=== PATIENT | female | born 1995 | race African-American/Black ===

== ENCOUNTER 2023-04-28 07:16 | Inpatient (IN) | payer OTHER, SELFPAY ==
[2023-04-28 08:10] LABS: #Monocytes 0.1 thou/uL (0.11-0.59); #Neutrophils 12.7 thou/uL (1.40-6.50); %Basophils 0.3 % (0.0-1.0); %Lymphocytes 5.4 % (21.0-51.0); %Monocytes 0.9 % (0.0-10.0); %Neutrophils 93.2 % (42.0-75.0); Hematocrit 45.1 % (36.0-47.0); Hemoglobin 14.7 g/dL (12.0-16.0); Mean Corpuscular HGB CONC 32.6 g/dL (32.0-36.0); Mean Corpuscular Hemoglobin 26.6 pg (27.0-31.0); Mean Corpuscular Volume 81.7 fl (78.0-98.0); Mean Platelet Volume 13.5 fL (7.4-10.4); Platelet Count 218 10x3/uL (130-400); RBC Distribution Width 12.7 % (11.5-14.5); Red Blood Cell (RBC) Count 5.52 mill/uL (4.20-5.40); White Blood Cell (WBC) Count 13.6 10x3/uL (4.8-10.8)
[2023-04-28 08:35] LABS: Phosphorus 5.6 mg/dL (2.3-4.7)
[2023-04-28 08:37] LABS: ALT (SGPT) 17 U/L (8-55); AST (SGOT) 15 U/L (5-34); Albumin 4.5 g/dL (3.5-5.0); Alkaline Phosphatase 139 U/L (40-110); Anion Gap 20 mmol/L (10-20); BUN (Urea Nitrogen) 12 mg/dL (7.0-18.7); Bilirubin, Total 0.2 mg/dL (0.2-1.2); Calc. Creatinine Clearance 0 mL/min (70-130); Calcium 10.3 mg/dL (7.8-10.44); Carbon Dioxide 23 mmol/L (22-29); Chloride 100 mmol/L (98-107); Estimated GFR 82; Glucose 366 mg/dL (70-105); Potassium 4.6 mmol/L (3.5-5.1); Protein, Total 8.5 g/dL (6.0-8.3); Sodium 138 mmol/L (136-145)
[2023-04-28 08:41] LABS: Bacteria/HPF 3+ HPF (None Seen); Bilirubin Negative (Negative); Blood, Urine 2+ (Negative); CAUTI Indications for Culture Dysuria,urgency,freq; Clarity Turbid (Clear); Glucose, Urine (Dipstick) Greater than 1000 mg/dL (Negative); Ketone, Urine 100 mg/dL (Negative); Leukocyte Negative Leu/uL (Negative); Nitrite Negative (Negative); Protein, Urine (Dipstick) 200 mg/dL (Neg-Trace); Specific Gravity, Urine 1.024 (1.002-1.036); Urobilinogen Normal mg/dL (Less than 2)
[2023-04-28 08:42] LABS: Amphetamine Not Detected (NotDetected); Barbiturates Screen Not Detected (NotDetected); Benzodiazepine Screen Not Detected (NotDetected); Cocaine Metabolite Screen Not Detected (NotDetected); Methadone Not Detected (NotDetected); Methamphetamine Not Detected (NotDetected); Opiate Screen Not Detected (NotDetected); Oxycodone Screen Not Detected (NotDetected); Phencyclidine (PCP) Not Detected (NotDetected); THC/Cannabinoid Screen Not Detected (NotDetected); Tricyclic Screen Not Detected (NotDetected)
[2023-04-28 08:43] LABS: Urine Culture Reflex Yes Yes
[2023-04-28 08:52] LABS: Acetaminophen Less than 10 mcg/mL (10.0-30.0); Alcohol Less than 10.0 mg/dL (Less than 10); Salicylate Less than 8.0 mg/dL (15.0-30.0)
[2023-04-28 08:57] LABS: Troponin I Less than 0.010 ng/mL (< 0.028)
[2023-04-28 09:43] LABS: SARS-CoV-2 NAA Rapid Test Not Detected (NotDetected)
[2023-04-28] MEDS ORDERED: Insulin Regular 300 UNITS/3 ML VIAL ONE (10:26)
[2023-04-28 11:32] LABS: Base Excess -6.8 mEq/L (-2.0 to +3.0); Calcium, Ionized (venous) 1.06 mmol/L (1.16-1.32); Chloride (VBG) 105 mmol/L (98-106); Hematocrit-VBG 45 % (36.0-47.0); Hemoglobin (Hb) 15.3 g/dL (11.7-15.5); Potassium (VBG) 4.97 mmol/L (3.70-5.30); Sodium 142 mmol/L (133-146); pH (venous) 7.305 (7.32-7.43)
[2023-04-28] MEDS ORDERED: INSULIN REGULAR IN 0.9 % NACL 100 UNITS/100 ML BAG ONE (11:59)
[2023-04-28] MEDS ORDERED: NS 0.9% w/ 20 MEQ KCL 1,000 ML ONE (11:59)
[2023-04-28] MEDS ORDERED: Ondansetron PF 4 MG/2 ML Vial ONE (12:09)
[2023-04-28] MEDS ORDERED: Acetaminophen 500 MG TAB ONE (12:09)
[2023-04-28] MEDS ORDERED: Sodium Chloride 0.9% 1,000 ML IV PRN (12:37)
[2023-04-28] MEDS ORDERED: NS 0.9% w/ 20 MEQ KCL 1,000 ML IV PRN ×2 (12:37)
[2023-04-28] MEDS ORDERED: Electrolyte Replacement Protocol 1 EACH IVPB SCH (12:37)
[2023-04-28] MEDS ORDERED: Dextrose 50% Abboject 50 ML SYRINGE SLOW IVP PRN ×2 (12:37→22:52)
[2023-04-28] MEDS ORDERED: Dextrose 5 %-0.45 % NaCl 1,000 ML IV PRN (12:37)
[2023-04-28] MEDS ORDERED: HUMULIN R 100 UNITS in Sodium Chloride 0.9% 100 ML IVPB SCH (12:45)
[2023-04-28 13:29] LABS: BHCG - Serum Negative (NEGATIVE); Pregs Control Background? CLEAR/WHITE (CLR/WHITE); Pregs Control Bar Appear? YES (CONTROL BAR)
[2023-04-28 14:19] LABS: Anion Gap 22 mmol/L (10-20); BUN (Urea Nitrogen) 10 mg/dL (7.0-18.7); Calc. Creatinine Clearance 0 mL/min (70-130); Calcium 9.1 mg/dL (7.8-10.44); Carbon Dioxide 15 mmol/L (22-29); Chloride 111 mmol/L (98-107); Estimated GFR 102; Glucose 285 mg/dL (70-105); Potassium 4.8 mmol/L (3.5-5.1); Sodium 143 mmol/L (136-145)
[2023-04-28] MEDS: D5 1/2 NS w/20 mEq KCL 1,000 ML IV PRN ×2 (16:44→20:45)
[2023-04-28] MEDS ORDERED: FLU VACC QS2023-24(6MOS UP)/PF 60 MCG/0.5 ML SYRINGE IM ONE (16:45)
[2023-04-28 18:15] LABS: Anion Gap 18 mmol/L (10-20); BUN (Urea Nitrogen) 10 mg/dL (7.0-18.7); Calc. Creatinine Clearance 0 mL/min (70-130); Calcium 9.4 mg/dL (7.8-10.44); Carbon Dioxide 19 mmol/L (22-29); Chloride 111 mmol/L (98-107); Estimated GFR 93; Glucose 214 mg/dL (70-105); Potassium 4.5 mmol/L (3.5-5.1); Sodium 143 mmol/L (136-145)
[2023-04-28 18:42] VITALS: BMI 31.6
[2023-04-28] MEDS ORDERED: Insulin Glargine 30 UNITS/0.3 ML VIAL SC SCH ×2 (21:00→23:00)
[2023-04-28] MEDS ORDERED: cefTRIAXone\\ROCEPHIN 1 GM in Sodium Chloride 0.9% 100 ML IVPB SCH (21:00)
[2023-04-28] MEDS: Acetaminophen 325 MG TAB PO PRN (21:31)
[2023-04-28 22:33] LABS: Anion Gap 14 mmol/L (10-20); BUN (Urea Nitrogen) 8 mg/dL (7.0-18.7); Calc. Creatinine Clearance 148 mL/min (70-130); Calcium 8.7 mg/dL (7.8-10.44); Carbon Dioxide 18 mmol/L (22-29); Chloride 112 mmol/L (98-107); Estimated GFR 105; Glucose 227 mg/dL (70-105); Potassium 4.1 mmol/L (3.5-5.1); Sodium 140 mmol/L (136-145)
[2023-04-28] MEDS ORDERED: Dextrose 5% in Water 1,000 ML IV PRN (22:52)
[2023-04-28] MEDS ORDERED: Glucagon 1 MG/ML KIT IM PRN (22:52)
[2023-04-29] MEDS: Lactated Ringer's 1,000 ML IV SCH ×2 (00:06→13:01)
[2023-04-29] MEDS: HumaLOG 300 UNITS/3 ML VIAL SC PRN ×2 (04:14→13:01)
[2023-04-29 06:49] LABS: #Basophils 0.1 thou/uL (0.0-0.2); #Monocytes 0.8 thou/uL (0.11-0.59); %Basophils 0.4 % (0.0-1.0); %Eosinophils 0.1 % (0.0-10.0); %Lymphocytes 22.4 % (21.0-51.0); %Monocytes 6.7 % (0.0-10.0); %Neutrophils 70.1 % (42.0-75.0); Hematocrit 37.5 % (36.0-47.0); Hemoglobin 12.3 g/dL (12.0-16.0); Mean Corpuscular HGB CONC 32.8 g/dL (32.0-36.0); Mean Corpuscular Hemoglobin 26.6 pg (27.0-31.0); Mean Corpuscular Volume 81.2 fl (78.0-98.0); Mean Platelet Volume 13.5 fL (7.4-10.4); Platelet Count 169 10x3/uL (130-400); RBC Distribution Width 13.3 % (11.5-14.5); Red Blood Cell (RBC) Count 4.62 mill/uL (4.20-5.40); White Blood Cell (WBC) Count 11.4 10x3/uL (4.8-10.8)
[2023-04-29 06:56] LABS: Hemoglobin A1c 10.4 % (4.0-6.0)
[2023-04-29 07:11] LABS: Anion Gap 10 mmol/L (10-20); BUN (Urea Nitrogen) 7 mg/dL (7.0-18.7); Calc. Creatinine Clearance 0 mL/min (70-130); Calcium 8.6 mg/dL (7.8-10.44); Carbon Dioxide 22 mmol/L (22-29); Chloride 110 mmol/L (98-107); Estimated GFR 117; Glucose 230 mg/dL (70-105); Potassium 3.7 mmol/L (3.5-5.1); Sodium 138 mmol/L (136-145)
[2023-04-29] MEDS ORDERED: Famotidine/PF 20 mg/2ml Vial SLOW IVP SCH (09:00)
[2023-04-29] MEDS ORDERED: Insulin Glargine 30 UNITS/0.3 ML VIAL SC SCH (09:15)
[2023-04-29 11:23] VITALS: TEMP 98.8
[2023-04-29] MEDS: Acetaminophen 325 MG TAB PO PRN (18:42)
== END 2023-04-29 19:30 | disposition home or self-care (01) | DRG 871 ==
LOC: ERS 07:16 → IMCU/EMU 12:39
PROVIDERS: ADMIT Hospitalist; ATTEND Hospitalist
DX: A41.9 Sepsis, unspecified organism (principal); E10.10 Type 1 diabetes mellitus with ketoacidosis without coma; N39.0 Urinary tract infection, site not specified; I10 Essential (primary) hypertension; G43.909 Migraine, unspecified, not intractable, without status migrainosus; F17.210 Nicotine dependence, cigarettes, uncomplicated; Z20.822 Contact with and (suspected) exposure to COVID-19; Z79.4 Long term (current) use of insulin
CPT/HCPCS: 36415; 36416; 80048; 80053; 80306; 80307; 81001; 82010; 82805; 83036; 83605; 83735; 84100; 84484; 84703; 85025; 87040; 87077; 87086; 87186; 93005; 96361; 96365; 96366; 96375; J0696; J1815; J2405; J3480; J3490; J7120; S0028

== ENCOUNTER 2023-06-09 05:18 | Emergency (ER) | payer SELFPAY ==
[2023-06-09] MEDS ORDERED: Metoclopramide HCl 10 MG/2 ML VIAL ONE (05:41)
[2023-06-09] MEDS ORDERED: diphenhydrAMINE 50 MG/ML VIAL ONE (05:41)
[2023-06-09] MEDS ORDERED: Magnesium 2 GM/50 ML BAG (IN WATER) ONE (05:41)
[2023-06-09] MEDS ORDERED: Ketorolac Tromethamine 30 MG/ML VIAL ONE (05:41)
[2023-06-09 06:01] LABS: #Monocytes 0.6 thou/uL (0.11-0.59); #Neutrophils 5.6 thou/uL (1.40-6.50); %Basophils 0.5 % (0.0-1.0); %Eosinophils 0.5 % (0.0-10.0); %Lymphocytes 25.2 % (21.0-51.0); %Monocytes 6.7 % (0.0-10.0); %Neutrophils 66.7 % (42.0-75.0); Hematocrit 43.8 % (36.0-47.0); Hemoglobin 14.6 g/dL (12.0-16.0); Mean Corpuscular HGB CONC 33.3 g/dL (32.0-36.0); Mean Corpuscular Hemoglobin 27.2 pg (27.0-31.0); Mean Corpuscular Volume 81.7 fl (78.0-98.0); Mean Platelet Volume 12.9 fL (7.4-10.4); Platelet Count 237 10x3/uL (130-400); RBC Distribution Width 13.1 % (11.5-14.5); Red Blood Cell (RBC) Count 5.36 mill/uL (4.20-5.40); White Blood Cell (WBC) Count 8.4 10x3/uL (4.8-10.8)
[2023-06-09 06:15] LABS: BHCG - Serum Negative (NEGATIVE); Pregs Control Background? CLEAR/WHITE (CLR/WHITE); Pregs Control Bar Appear? YES (CONTROL BAR)
[2023-06-09 06:37] LABS: ALT (SGPT) 18 U/L (8-55); AST (SGOT) 25 U/L (5-34); Albumin 3.9 g/dL (3.5-5.0); Alkaline Phosphatase 129 U/L (40-110); Anion Gap 14 mmol/L (10-20); BUN (Urea Nitrogen) 14 mg/dL (7.0-18.7); Bilirubin, Total 0.2 mg/dL (0.2-1.2); Calc. Creatinine Clearance 0 mL/min (70-130); Calcium 9.5 mg/dL (7.8-10.44); Carbon Dioxide 26 mmol/L (22-29); Chloride 104 mmol/L (98-107); Estimated GFR 112; Globulin 4.1 g/dL (2.4-3.5); Glucose 112 mg/dL (70-105); Potassium 3.4 mmol/L (3.5-5.1); Sodium 141 mmol/L (136-145)
[2023-06-09 06:43] LABS: Magnesium 1.8 mg/dL (1.6-2.6)
== END 2023-06-09 09:19 | disposition home or self-care (01) ==
LOC: ERS 05:18
DX: R51.9 Headache, unspecified (principal); I10 Essential (primary) hypertension; E11.9 Type 2 diabetes mellitus without complications; F17.290 Nicotine dependence, other tobacco product, uncomplicated; Z79.4 Long term (current) use of insulin
CPT/HCPCS: 80053; 83735; 84703; 85025; 96365; 96368; 96375; J1200; J1885; J2765; J3475

== ENCOUNTER 2023-06-14 04:00 | Inpatient (IN) | payer SELFPAY ==
[2023-06-14] MEDS ORDERED: diphenhydrAMINE 50 MG/ML VIAL ONE (04:35)
[2023-06-14] MEDS ORDERED: Prochlorperazine 10 MG/2 ML VIAL ONE (04:35)
[2023-06-14] MEDS ORDERED: Acetaminophen 500 MG TAB ONE (04:35)
[2023-06-14] MEDS ORDERED: Metoclopramide HCl 10 MG/2 ML VIAL ONE (05:11)
[2023-06-14 07:45] LABS: Analyzer IN Cardio ER; Base Excess -22.6 mEq/L (-2.0 to +3.0); Calcium, Ionized (venous) 1.27 mmol/L (1.16-1.32); Chloride (VBG) 98 mmol/L (98-106); Hematocrit-VBG 45 % (36.0-47.0); Hemoglobin (Hb) 15.3 g/dL (11.7-15.5); Sodium 136 mmol/L (133-146)
[2023-06-14 07:53] LABS: #Basophils 0.1 thou/uL (0.0-0.2); #Monocytes 0.9 thou/uL (0.11-0.59); #Neutrophils 7.6 thou/uL (1.40-6.50); %Basophils 0.5 % (0.0-1.0); %Lymphocytes 14.4 % (21.0-51.0); %Monocytes 9.3 % (0.0-10.0); %Neutrophils 75.5 % (42.0-75.0); Hematocrit 45.9 % (36.0-47.0); Hemoglobin 14.8 g/dL (12.0-16.0); Mean Corpuscular HGB CONC 32.2 g/dL (32.0-36.0); Mean Corpuscular Hemoglobin 27.1 pg (27.0-31.0); Mean Corpuscular Volume 84.1 fl (78.0-98.0); Mean Platelet Volume 13.8 fL (7.4-10.4); Platelet Count 202 10x3/uL (130-400); RBC Distribution Width 13.3 % (11.5-14.5); Red Blood Cell (RBC) Count 5.46 mill/uL (4.20-5.40); White Blood Cell (WBC) Count 10.1 10x3/uL (4.8-10.8)
[2023-06-14 08:02] LABS: pH (venous) 7.057 (7.32-7.43)
[2023-06-14 08:03] LABS: Actual Bicarbonate (HCO3v) 6.2 mEq/L (22-28); Potassium (VBG) 6.35 mmol/L (3.70-5.30)
[2023-06-14 08:20] LABS: BHCG - Serum Negative (NEGATIVE); Pregs Control Background? CLEAR/WHITE (CLR/WHITE); Pregs Control Bar Appear? YES (CONTROL BAR)
[2023-06-14] MEDS ORDERED: INSULIN REGULAR IN 0.9 % NACL 100 UNITS/100 ML BAG ONE (08:38)
[2023-06-14 09:01] LABS: Lipase 6 U/L (8-78); Phosphorus 6.1 mg/dL (2.3-4.7)
[2023-06-14 09:05] LABS: ALT (SGPT) 13 U/L (8-55); AST (SGOT) 13 U/L (5-34); Alkaline Phosphatase 111 U/L (40-110); BUN (Urea Nitrogen) 34 mg/dL (7.0-18.7); Bilirubin, Total 0.2 mg/dL (0.2-1.2); Calc. Creatinine Clearance 0 mL/min (70-130); Calcium 7.8 mg/dL (7.8-10.44); Chloride 107 mmol/L (98-107); Estimated GFR 42; Globulin 3.3 g/dL (2.4-3.5); Magnesium 2.2 mg/dL (1.6-2.6); Potassium 5.2 mmol/L (3.5-5.1); Protein, Total 6.3 g/dL (6.0-8.3); Sodium 137 mmol/L (136-145)
[2023-06-14 09:09] LABS: Bacteria/HPF None Seen HPF (None Seen); Bilirubin Negative (Negative); Blood, Urine Trace (Negative); CAUTI Indications for Culture Alt mental st,lethar; Clarity Turbid (Clear); Glucose, Urine (Dipstick) Greater than 1000 mg/dL (Negative); Ketone, Urine 100 mg/dL (Negative); Leukocyte Negative Leu/uL (Negative); Nitrite Negative (Negative); Protein, Urine (Dipstick) 50 mg/dL (Neg-Trace); Specific Gravity, Urine 1.013 (1.002-1.036); Squamous Epithelial None Seen HPF (0-3); Urobilinogen Normal mg/dL (Less than 2)
[2023-06-14 09:10] LABS: Urine Culture Reflex No No
[2023-06-14 09:27] LABS: Troponin I Less than 0.010 ng/mL (< 0.028)
[2023-06-14 09:31] LABS: Carbon Dioxide Less than 8 mmol/L (22-29); Glucose 662 mg/dL (70-105)
[2023-06-14] MEDS ORDERED: Ondansetron PF 4 MG/2 ML Vial ONE (09:53)
[2023-06-14 09:54] LABS: Acetaminophen Less than 10 mcg/mL (10.0-30.0); Alcohol Less than 10.0 mg/dL (Less than 10); Salicylate Less than 8.0 mg/dL (15.0-30.0)
[2023-06-14 09:58] LABS: Amphetamine Not Detected (NotDetected); Barbiturates Screen Not Detected (NotDetected); Benzodiazepine Screen Not Detected (NotDetected); Cocaine Metabolite Screen Not Detected (NotDetected); Methadone Not Detected (NotDetected); Methamphetamine Not Detected (NotDetected); Opiate Screen Not Detected (NotDetected); Oxycodone Screen Not Detected (NotDetected); Phencyclidine (PCP) Not Detected (NotDetected); THC/Cannabinoid Screen Not Detected (NotDetected); Tricyclic Screen Not Detected (NotDetected)
[2023-06-14] MEDS ORDERED: Acetaminophen 650 MG Suppository PR PRN (10:06)
[2023-06-14] MEDS ORDERED: NS 0.9% w/ 20 MEQ KCL 1,000 ML IV PRN ×2 (10:06)
[2023-06-14] MEDS ORDERED: Calcium Carbonate 500 MG ChewTAB PO PRN (10:06)
[2023-06-14] MEDS ORDERED: Electrolyte Replacement Protocol 1 EACH IVPB ONE (10:06)
[2023-06-14] MEDS ORDERED: Sodium Chloride 0.9% 1,000 ML IV PRN ×4 (10:06)
[2023-06-14] MEDS ORDERED: Dextrose 50% Abboject 50 ML SYRINGE SLOW IVP PRN (10:06)
[2023-06-14] MEDS ORDERED: Dextrose 5 %-0.45 % NaCl 1,000 ML IV PRN (10:06)
[2023-06-14] MEDS ORDERED: Senokot S 8.6-50 MG TAB PO PRN (10:06)
[2023-06-14] MEDS ORDERED: Ondansetron PF 4 MG/2 ML Vial IVP PRN (10:06)
[2023-06-14] MEDS ORDERED: Sodium Chloride 0.9% 1,000 ML IV SCH (10:15)
[2023-06-14] MEDS ORDERED: HUMULIN R 100 UNITS in Sodium Chloride 0.9% 100 ML IVPB SCH (10:15)
[2023-06-14] MEDS ORDERED: Electrolyte Replacement Protocol FS PRN (10:30)
[2023-06-14 11:12] LABS: BUN (Urea Nitrogen) 36 mg/dL (7.0-18.7); Calc. Creatinine Clearance 0 mL/min (70-130); Calcium 7.9 mg/dL (7.8-10.44); Chloride 114 mmol/L (98-107); Estimated GFR 40; Sodium 140 mmol/L (136-145)
[2023-06-14 11:20] LABS: Carbon Dioxide Less than 8 mmol/L (22-29); Glucose 465 mg/dL (70-105); Troponin I Less than 0.010 ng/mL (< 0.028)
[2023-06-14 11:42] LABS: Calcium, Ionized (arterial) 1.23 mmol/L (1.12-1.30); Carboxyhemoglobin (COHb) 0.4 gm% (0.0-3.0); Hematocrit-ABG 40 % (36.0-47.0); Hemoglobin (Hb) 13.7 g/dL (12.0-16.0); O2 Tension (PaO2), arterial 113.3 mmHg (80.0-100.0); Potassium - ABG Lab 5.19 mmol/L (3.70-5.30)
[2023-06-14] MEDS ORDERED: Sodium Bicarb 50 MEQ/50 ML VIAL IVP SCH ×2 (11:45→11:47)
[2023-06-14 11:49] LABS: Actual Bicarbonate (HCO3a) 5.6 mEq/L (22-28); CO2 Tension 19.9 mmHg (35.0-45.0); Puncture Site RRA; pH, Arterial 7.064 (7.35-7.45)
[2023-06-14] MEDS ORDERED: Piperacillin/Tazobactam 3.375 GM in Sodium Chloride 0.9% 100 ML IVPB SCH (13:15)
[2023-06-14] MEDS ORDERED: FLU VACC QS2023-24(6MOS UP)/PF 60 MCG/0.5 ML SYRINGE IM ONE (14:30)
[2023-06-14 15:18] LABS: Base Excess (BEa) -14.3 mEq/L (-2.0 to +3.0); Calcium, Ionized (arterial) 1.19 mmol/L (1.12-1.30); Carboxyhemoglobin (COHb) 0.2 gm% (0.0-3.0); Hematocrit-ABG 40 % (36.0-47.0); Hemoglobin (Hb) 13.5 g/dL (12.0-16.0); O2 Tension (PaO2), arterial 99.3 mmHg (80.0-100.0); Potassium - ABG Lab 4.84 mmol/L (3.70-5.30); pH, Arterial 7.236 (7.35-7.45)
[2023-06-14 15:21] LABS: Actual Bicarbonate (HCO3a) 11.6 mEq/L (22-28); Puncture Site LBA
[2023-06-14 16:39] LABS: Anion Gap 22 mmol/L (10-20); BUN (Urea Nitrogen) 26 mg/dL (7.0-18.7); Calc. Creatinine Clearance 73 mL/min (70-130); Calcium 7.7 mg/dL (7.8-10.44); Carbon Dioxide 10 mmol/L (22-29); Chloride 120 mmol/L (98-107); Estimated GFR 47; Glucose 261 mg/dL (70-105); Potassium 5.3 mmol/L (3.5-5.1); Sodium 147 mmol/L (136-145)
[2023-06-14 16:45] LABS: Troponin I Less than 0.010 ng/mL (< 0.028)
[2023-06-14] MEDS: Piperacillin/Tazobactam 3.375 GM in Sodium Chloride 0.9% 100 ML IVPB SCH (17:23)
[2023-06-14 17:36] LABS: Anion Gap 18 mmol/L (10-20); BUN (Urea Nitrogen) 24 mg/dL (7.0-18.7); Calc. Creatinine Clearance 77 mL/min (70-130); Calcium 7.8 mg/dL (7.8-10.44); Carbon Dioxide 13 mmol/L (22-29); Chloride 122 mmol/L (98-107); Estimated GFR 50; Glucose 239 mg/dL (70-105); Potassium 4.8 mmol/L (3.5-5.1); Sodium 148 mmol/L (136-145)
[2023-06-14] MEDS: D5 1/2 NS w/20 mEq KCL 1,000 ML IV PRN ×2 (18:50→23:25)
[2023-06-14] MEDS: Acetaminophen 325 MG TAB PO PRN (19:51)
[2023-06-14] MEDS: Famotidine/PF 20 mg/2ml Vial SLOW IVP SCH (21:48)
[2023-06-15] MEDS: Piperacillin/Tazobactam 3.375 GM in Sodium Chloride 0.9% 100 ML IVPB SCH ×3 (02:08→17:13)
[2023-06-15] MEDS: D5 1/2 NS w/20 mEq KCL 1,000 ML IV PRN (03:26)
[2023-06-15 05:21] LABS: #Monocytes 0.5 thou/uL (0.11-0.59); %Basophils 0.2 % (0.0-1.0); %Lymphocytes 20.4 % (21.0-51.0); %Monocytes 8.3 % (0.0-10.0); %Neutrophils 70.7 % (42.0-75.0); Hemoglobin A1c 10.9 % (4.0-6.0); Mean Corpuscular HGB CONC 33.5 g/dL (32.0-36.0); Mean Corpuscular Hemoglobin 27.1 pg (27.0-31.0); Mean Platelet Volume 12.6 fL (7.4-10.4); Platelet Count 146 10x3/uL (130-400); RBC Distribution Width 13.6 % (11.5-14.5); Red Blood Cell (RBC) Count 4.25 mill/uL (4.20-5.40); White Blood Cell (WBC) Count 5.6 10x3/uL (4.8-10.8)
[2023-06-15 05:37] LABS: ALT (SGPT) 9 U/L (8-55); AST (SGOT) 12 U/L (5-34); Albumin 2.6 g/dL (3.5-5.0); Alkaline Phosphatase 86 U/L (40-110); Anion Gap 10 mmol/L (10-20); BUN (Urea Nitrogen) 14 mg/dL (7.0-18.7); Bilirubin, Total 0.2 mg/dL (0.2-1.2); Calc. Creatinine Clearance 105 mL/min (70-130); Calcium 7.3 mg/dL (7.8-10.44); Carbon Dioxide 20 mmol/L (22-29); Chloride 122 mmol/L (98-107); Estimated GFR 72; Globulin 3.1 g/dL (2.4-3.5); Glucose 228 mg/dL (70-105); Magnesium 2.1 mg/dL (1.6-2.6); Phosphorus Less than 1.0 mg/dL (2.3-4.7); Potassium 3.6 mmol/L (3.5-5.1); Protein, Total 5.7 g/dL (6.0-8.3); Sodium 148 mmol/L (136-145)
[2023-06-15 06:01] LABS: Hemoglobin 11.5 g/dL (12.0-16.0)
[2023-06-15 06:02] LABS: Hematocrit 34.3 % (36.0-47.0); Mean Corpuscular Volume 80.7 fl (78.0-98.0)
[2023-06-15] MEDS ORDERED: Potassium Phosphate 30 MMOL in Sodium Chloride 0.9% 250 ML 250 ML IVPB SCH (07:00)
[2023-06-15] MEDS: Famotidine/PF 20 mg/2ml Vial SLOW IVP SCH ×2 (07:46→22:11)
[2023-06-15 10:30] VITALS: BMI 30.9
[2023-06-15] MEDS ORDERED: Dextrose 5% in Water 1,000 ML IV PRN (10:51)
[2023-06-15] MEDS ORDERED: Glucagon 1 MG/ML KIT IM PRN (10:51)
[2023-06-15] MEDS ORDERED: SUMAtriptan Succinate 50 MG TAB PO PRN (11:08)
[2023-06-15] MEDS: HumaLOG 300 UNITS/3 ML VIAL SC PRN ×3 (14:36→22:17)
[2023-06-15 20:48] LABS: Phosphorus 1.5 mg/dL (2.3-4.7)
[2023-06-15] MEDS: Insulin Glargine 30 UNITS/0.3 ML VIAL SC SCH (22:10)
[2023-06-15] MEDS ORDERED: Potassium Phosphate 22 MMOL in Sodium Chloride 0.9% 250 ML 250 ML IVPB SCH (22:30)
[2023-06-16] MEDS: Piperacillin/Tazobactam 3.375 GM in Sodium Chloride 0.9% 100 ML IVPB SCH ×3 (02:39→17:51)
[2023-06-16] MEDS: Acetaminophen 325 MG TAB PO PRN ×2 (03:34→20:17)
[2023-06-16 05:20] LABS: Anion Gap 15 mmol/L (10-20); BUN (Urea Nitrogen) 7 mg/dL (7.0-18.7); Calc. Creatinine Clearance 141 mL/min (70-130); Calcium 7.7 mg/dL (7.8-10.44); Carbon Dioxide 17 mmol/L (22-29); Chloride 112 mmol/L (98-107); Estimated GFR 102; Glucose 314 mg/dL (70-105); Phosphorus 2.2 mg/dL (2.3-4.7); Potassium 3.8 mmol/L (3.5-5.1); Sodium 140 mmol/L (136-145)
[2023-06-16] MEDS: HumaLOG 300 UNITS/3 ML VIAL SC PRN ×5 (06:19→22:04)
[2023-06-16] MEDS: Lisinopril 2.5 MG TAB PO SCH (09:48)
[2023-06-16] MEDS: Famotidine/PF 20 mg/2ml Vial SLOW IVP SCH ×2 (09:48→20:02)
[2023-06-16] MEDS: Insulin Glargine 30 UNITS/0.3 ML VIAL SC SCH (20:01)
[2023-06-17] MEDS: Piperacillin/Tazobactam 3.375 GM in Sodium Chloride 0.9% 100 ML IVPB SCH ×3 (02:28→17:22)
[2023-06-17] MEDS: HumaLOG 300 UNITS/3 ML VIAL SC PRN ×4 (06:01→22:19)
[2023-06-17 08:33] LABS: Hematocrit 38.2 % (36.0-47.0); Hemoglobin 12.8 g/dL (12.0-16.0); Manual Diff?? YES; Mean Corpuscular HGB CONC 33.5 g/dL (32.0-36.0); Mean Corpuscular Hemoglobin 26.7 pg (27.0-31.0); Mean Corpuscular Volume 79.7 fl (78.0-98.0); Mean Platelet Volume 13.3 fL (7.4-10.4); Platelet Count 132 10x3/uL (130-400); RBC Distribution Width 13.9 % (11.5-14.5); Red Blood Cell (RBC) Count 4.79 mill/uL (4.20-5.40); White Blood Cell (WBC) Count 3.7 10x3/uL (4.8-10.8)
[2023-06-17 08:37] LABS: Delete Auto Diff?? YES
[2023-06-17 09:04] LABS: Anion Gap 14 mmol/L (10-20); BUN (Urea Nitrogen) 9 mg/dL (7.0-18.7); Calc. Creatinine Clearance 158 mL/min (70-130); Calcium 8.2 mg/dL (7.8-10.44); Carbon Dioxide 18 mmol/L (22-29); Chloride 109 mmol/L (98-107); Estimated GFR 115; Glucose 259 mg/dL (70-105); Sodium 137 mmol/L (136-145)
[2023-06-17] MEDS: Lisinopril 2.5 MG TAB PO SCH (09:18)
[2023-06-17] MEDS: Famotidine/PF 20 mg/2ml Vial SLOW IVP SCH ×2 (09:18→20:37)
[2023-06-17] MEDS: Insulin Glargine 30 UNITS/0.3 ML VIAL SC SCH ×2 (09:19→20:37)
[2023-06-17 09:33] LABS: CellaVision Operator ID LAB.NR; Eosinophils 1 % (0-10); Large Platelets 4.8 % (0-5); Lymphocytes 52 % (21-51); Monocytes 3 % (0-10); Neutrophil 39 % (42-75); Other Cell Types 1.9; Platelet Adequacy Comment Platelets Normal; RBC Morphology Within Normal Limits; Reactive Lymphocytes 4 % (0-10); Smudge Cells 10.6 %; Total Cell Count 104
[2023-06-18] MEDS: HumaLOG 300 UNITS/3 ML VIAL SC PRN ×3 (00:07→13:51)
[2023-06-18] MEDS: Piperacillin/Tazobactam 3.375 GM in Sodium Chloride 0.9% 100 ML IVPB SCH ×2 (02:29→09:54)
[2023-06-18 07:33] LABS: Hematocrit 37.9 % (36.0-47.0); Hemoglobin 12.2 g/dL (12.0-16.0); Manual Diff?? YES; Mean Corpuscular HGB CONC 32.2 g/dL (32.0-36.0); Mean Corpuscular Hemoglobin 26.6 pg (27.0-31.0); Mean Platelet Volume 13.4 fL (7.4-10.4); RBC Distribution Width 13.7 % (11.5-14.5); Red Blood Cell (RBC) Count 4.59 mill/uL (4.20-5.40); White Blood Cell (WBC) Count 4.1 10x3/uL (4.8-10.8)
[2023-06-18 07:53] LABS: Delete Auto Diff?? YES; Platelet Count 111 10x3/uL (130-400)
[2023-06-18 07:59] LABS: Anion Gap 12 mmol/L (10-20); BUN (Urea Nitrogen) 9 mg/dL (7.0-18.7); Calc. Creatinine Clearance 175 mL/min (70-130); Calcium 8.2 mg/dL (7.8-10.44); Carbon Dioxide 22 mmol/L (22-29); Chloride 109 mmol/L (98-107); Estimated GFR 121; Glucose 171 mg/dL (70-105); Potassium 3.1 mmol/L (3.5-5.1); Sodium 140 mmol/L (136-145)
[2023-06-18 08:30] LABS: Burr Cells SLIGHT = 2-5 cells HPF (0-1); CellaVision Operator ID LAB.NR; Eosinophils 3 % (0-10); Hypochromia SLIGHT = 6-15 cells HPF (0-5); Large Platelets 6.9 % (0-5); Lymphocytes 44 % (21-51); Monocytes 5 % (0-10); Neutrophil 48 % (42-75); Platelet Adequacy Comment Platelets Decreased; Smudge Cells 11.8 %; Total Cell Count 102; Vacuoles SLIGHT
[2023-06-18 08:37] LABS: Mean Corpuscular Volume 82.6 fl (78.0-98.0)
[2023-06-18] MEDS: Lisinopril 2.5 MG TAB PO SCH (08:46)
[2023-06-18] MEDS: Famotidine/PF 20 mg/2ml Vial SLOW IVP SCH (08:47)
[2023-06-18] MEDS: Insulin Glargine 30 UNITS/0.3 ML VIAL SC SCH (08:47)
[2023-06-18] MEDS ORDERED: Benzocaine/Menthol 1 LOZ LOZ PO PRN (09:53)
[2023-06-18] MEDS ORDERED: Potassium Chloride 40 MEQ in Premix 1 BAG IVPB SCH (10:00)
[2023-06-18 11:27] VITALS: TEMP 98.1
[2023-06-18] MEDS ORDERED: Potassium Chloride 20 MEQ TAB PO SCH (14:30)
[2023-06-18 15:41] VITALS: BP 134/86
== END 2023-06-18 17:34 | disposition home or self-care (01) | DRG 638 ==
LOC: SUATTDRO 04:00 → ERS 04:00 → IMCU/EMU 09:41 → MSONC 06-16 13:49
PROVIDERS: ADMIT Internal Medicine; ATTEND Internal Medicine
PROC: 02HV33Z Insertion of Infusion Device into Superior Vena Cava, Percutaneous Approach (ICD-10-PCS; principal; 2023-06-14)
PROC: 0T9B70Z Drainage of Bladder with Drainage Device, Via Natural or Artificial Opening (ICD-10-PCS; 2023-06-14)
PROC: 4A133R1 Monitoring of Arterial Saturation, Peripheral, Percutaneous Approach (ICD-10-PCS; 2023-06-14)
PROC: 0J910ZZ Drainage of Face Subcutaneous Tissue and Fascia, Open Approach (ICD-10-PCS; 2023-06-16)
DX: E10.10 Type 1 diabetes mellitus with ketoacidosis without coma (principal); L02.01 Cutaneous abscess of face; N17.9 Acute kidney failure, unspecified; G43.909 Migraine, unspecified, not intractable, without status migrainosus; Z79.4 Long term (current) use of insulin; I10 Essential (primary) hypertension; F17.290 Nicotine dependence, other tobacco product, uncomplicated; F17.210 Nicotine dependence, cigarettes, uncomplicated; Z79.899 Other long term (current) drug therapy; D17.0 Benign lipomatous neoplasm of skin and subcutaneous tissue of head, face and neck; F17.200 Nicotine dependence, unspecified, uncomplicated; Z83.3 Family history of diabetes mellitus; Z82.49 Family history of ischemic heart disease and other diseases of the circulatory system; E87.6 Hypokalemia
CPT/HCPCS: 36415; 36416; 36556; 36600; 51701; 70450; 71045; 76999; 80048; 80053; 80306; 80307; 81001; 82010; 82805; 83036; 83690; 83735; 84100; 84145; 84443; 84484; 84703; 85025; 86140; 87040; 93005; 96361; 96365; 96366; 96372; 96375; J0780; J1200; J1650; J1815; J2405; J2543; J2765; J3480; J3490; J7050; S0028

== ENCOUNTER 2023-12-09 05:14 | Emergency (ER) | payer MEDICAID ==
[2023-12-09] MEDS ORDERED: Amoxicillin/Potassium Clav 875 MG TAB ONE (05:33)
[2023-12-09] MEDS ORDERED: Ketorolac Tromethamine 30 MG (1 mL) VIAL ONE (05:33)
[2023-12-09 05:59] LABS: #Basophils 0.03 10x3/uL (0.0-0.2); %Basophils 0.3 % (0.0-1.0); %Eosinophils 0.9 % (0.0-10.0); %Lymphocytes 16.5 % (21.0-51.0); %Monocytes 7.6 % (0.0-10.0); %Neutrophils 74.5 % (42.0-75.0); Hematocrit 34.3 % (36.0-47.0); Hemoglobin 11.6 g/dL (12.0-16.0); Mean Corpuscular HGB CONC 33.8 g/dL (32.0-36.0); Mean Corpuscular Hemoglobin 26.9 pg (27.0-31.0); Mean Corpuscular Volume 79.6 fL (78.0-98.0); Mean Platelet Volume 12.8 fL (7.4-10.4); Platelet Count 246 10x3/uL (130-400); RBC Distribution Width 12.7 % (11.5-14.5); Red Blood Cell (RBC) Count 4.31 mill/uL (4.20-5.40)
[2023-12-09 06:08] LABS: BHCG - Serum Negative (NEGATIVE); Pregs Control Background? CLEAR/WHITE (CLR/WHITE); Pregs Control Bar Appear? YES (CONTROL BAR)
[2023-12-09 06:23] LABS: ALT (SGPT) 15 U/L (8-55); AST (SGOT) 29 U/L (5-34); Albumin 2.7 g/dL (3.5-5.0); Alkaline Phosphatase 174 U/L (40-110); Anion Gap 11 mmol/L (10-20); BUN (Urea Nitrogen) 12 mg/dL (7.0-18.7); Bilirubin, Total 0.2 mg/dL (0.2-1.2); Calc. Creatinine Clearance 0 mL/min (70-130); Calcium 9.3 mg/dL (7.8-10.44); Carbon Dioxide 24 mmol/L (22-29); Chloride 109 mmol/L (98-107); Estimated GFR 105; Globulin 4.2 g/dL (2.4-3.5); Glucose 82 mg/dL (70-105); Potassium 3.1 mmol/L (3.5-5.1); Protein, Total 6.9 g/dL (6.0-8.3)
[2023-12-09 06:33] LABS: Sodium 141 mmol/L (136-145)
== END 2023-12-09 06:58 ==
LOC: ERS 05:14
DX: N61.0 Mastitis without abscess (principal); I10 Essential (primary) hypertension; E10.9 Type 1 diabetes mellitus without complications; F17.290 Nicotine dependence, other tobacco product, uncomplicated
CPT/HCPCS: 80053; 83605; 84703; 85025; 96374; J1885

== ENCOUNTER 2023-12-17 10:11 | Inpatient (IN) | payer MEDICAID, OTHER ==
[2023-12-17] MEDS ORDERED: Ondansetron PF 4 MG/2 ML Vial ONE (10:33)
[2023-12-17] MEDS ORDERED: Morphine 4 MG/ML VIAL ONE (10:34)
[2023-12-17 10:49] LABS: #Basophils 0.03 10x3/uL (0.0-0.2); %Basophils 0.3 % (0.0-1.0); %Eosinophils 1.1 % (0.0-10.0); %Lymphocytes 17.1 % (21.0-51.0); %Monocytes 6.5 % (0.0-10.0); %Neutrophils 74.7 % (42.0-75.0); Hematocrit 36.2 % (36.0-47.0); Hemoglobin 11.9 g/dL (12.0-16.0); Mean Corpuscular HGB CONC 32.9 g/dL (32.0-36.0); Mean Corpuscular Hemoglobin 26.3 pg (27.0-31.0); Mean Corpuscular Volume 79.9 fL (78.0-98.0); Mean Platelet Volume 12.1 fL (7.4-10.4); Platelet Count 319 10x3/uL (130-400); Red Blood Cell (RBC) Count 4.53 mill/uL (4.20-5.40)
[2023-12-17] MEDS ORDERED: Cefepime 2 GM VIAL ONE (10:50)
[2023-12-17] MEDS ORDERED: Sodium Chloride 0.9% 100 ML ONE (10:50)
[2023-12-17 10:56] LABS: BHCG - Serum Negative (NEGATIVE); Pregs Control Background? CLEAR/WHITE (CLR/WHITE); Pregs Control Bar Appear? YES (CONTROL BAR)
[2023-12-17 11:05] LABS: ALT (SGPT) 69 U/L (8-55); AST (SGOT) 77 U/L (5-34); Albumin 2.5 g/dL (3.5-5.0); Alkaline Phosphatase 305 U/L (40-110); Anion Gap 15 mmol/L (10-20); BUN (Urea Nitrogen) 11 mg/dL (7.0-18.7); Bilirubin, Total 0.2 mg/dL (0.2-1.2); Calc. Creatinine Clearance 0 mL/min (70-130); Calcium 9.2 mg/dL (7.8-10.44); Carbon Dioxide 22 mmol/L (22-29); Chloride 108 mmol/L (98-107); Estimated GFR 102; Globulin 5.1 g/dL (2.4-3.5); Glucose 83 mg/dL (70-105); Potassium 3.5 mmol/L (3.5-5.1); Protein, Total 7.6 g/dL (6.0-8.3); Sodium 141 mmol/L (136-145)
[2023-12-17] MEDS ORDERED: Vancomycin 1 GM/200 ML (FROZEN) BAG ONE (13:12)
[2023-12-17] MEDS ORDERED: Acetaminophen 650 MG Suppository PR PRN (13:38)
[2023-12-17] MEDS ORDERED: Glucagon 1 MG/ML KIT IM PRN (13:42)
[2023-12-17] MEDS ORDERED: Dextrose 5% in Water 1,000 ML IV PRN (13:42)
[2023-12-17] MEDS ORDERED: Dextrose 50% Abboject 50 ML SYRINGE SLOW IVP PRN (13:42)
[2023-12-17 15:06] VITALS: BMI 30.7
[2023-12-17] MEDS: Morphine 4 MG/ML VIAL SLOW IVP PRN (15:07)
[2023-12-17] MEDS: Vancomycin 1 GM in Premix 1 BAG IVPB SCH (17:33)
[2023-12-17] MEDS: Insulin Glargine 30 UNITS/0.3 ML VIAL SC SCH (20:32)
[2023-12-17] MEDS: Morphine 2 MG/ML VIAL SLOW IVP PRN (20:33)
[2023-12-17] MEDS: Acetaminophen 325 MG TAB PO PRN (20:34)
[2023-12-17] MEDS ORDERED: Vancomycin 1 GM in Premix 1 BAG IVPB SCH (21:00)
[2023-12-17] MEDS ORDERED: Insulin Glargine 30 UNITS/0.3 ML VIAL SC SCH (21:00)
[2023-12-17] MEDS: Cefepime 2 GM in Sodium Chloride 0.9% 100 ML IVPB SCH (22:51)
[2023-12-18] MEDS: Vancomycin 1 GM in Premix 1 BAG IVPB SCH (00:43)
[2023-12-18] MEDS: HumaLOG 300 UNITS/3 ML VIAL SC SCH (08:42)
[2023-12-18 08:54] LABS: #Basophils 0.04 10x3/uL (0.0-0.2); %Basophils 0.3 % (0.0-1.0); %Eosinophils 0.9 % (0.0-10.0); %Lymphocytes 11.5 % (21.0-51.0); %Monocytes 7.1 % (0.0-10.0); %Neutrophils 79.9 % (42.0-75.0); Hematocrit 34.1 % (36.0-47.0); Hemoglobin 11.1 g/dL (12.0-16.0); Mean Corpuscular HGB CONC 32.6 g/dL (32.0-36.0); Mean Corpuscular Hemoglobin 26.1 pg (27.0-31.0); Mean Corpuscular Volume 80.2 fL (78.0-98.0); Mean Platelet Volume 13.2 fL (7.4-10.4); Platelet Count 260 10x3/uL (130-400); RBC Distribution Width 13.2 % (11.5-14.5); Red Blood Cell (RBC) Count 4.25 mill/uL (4.20-5.40)
[2023-12-18 09:31] LABS: Anion Gap 14 mmol/L (10-20); BUN (Urea Nitrogen) 10 mg/dL (7.0-18.7); Calc. Creatinine Clearance 138 mL/min (70-130); Calcium 8.8 mg/dL (7.8-10.44); Carbon Dioxide 21 mmol/L (22-29); Chloride 106 mmol/L (98-107); Estimated GFR 100; Glucose 319 mg/dL (70-105); Potassium 4.1 mmol/L (3.5-5.1); Sodium 137 mmol/L (136-145)
[2023-12-18 09:37] LABS: Vancomycin, Random 16.7 ug/mL (See Comment)
[2023-12-18] MEDS: Sodium Chloride 0.9% 1,000 ML IV SCH (12:50)
[2023-12-18 16:23] LABS: Pregnancy Test - Urine (BHCG) Negative (Negative); Pregu Control Background? CLEAR/WHITE (CLR/WHITE); Pregu Control Bar Appear? YES (CONTROL BAR); Specific Gravity 1.022 (1.002-1.036)
[2023-12-18 19:06] LABS: Iron 21 ug/dL (50-170); Iron Binding Capacity, Total 171 mcg/dL (265-497)
[2023-12-18] MEDS: Insulin Glargine 30 UNITS/0.3 ML VIAL SC SCH (19:49)
[2023-12-18] MEDS: Labetalol HCl 100 MG TAB PO SCH (22:19)
[2023-12-18] MEDS: HumaLOG 300 UNITS/3 ML VIAL SC PRN (22:59)
[2023-12-18] MEDS: Sodium Chloride 0.9% 500 ML IV SCH (23:07)
[2023-12-19 05:41] LABS: Anion Gap 17 mmol/L (10-20); BUN (Urea Nitrogen) 11 mg/dL (7.0-18.7); Calc. Creatinine Clearance 133 mL/min (70-130); Carbon Dioxide 19 mmol/L (22-29); Chloride 105 mmol/L (98-107); Sodium 137 mmol/L (136-145)
[2023-12-19 05:42] LABS: #Basophils 0.04 10x3/uL (0.0-0.2); %Basophils 0.3 % (0.0-1.0); %Eosinophils 0.8 % (0.0-10.0); %Lymphocytes 16.3 % (21.0-51.0); %Monocytes 6.5 % (0.0-10.0); %Neutrophils 75.8 % (42.0-75.0); Calcium 8.8 mg/dL (7.8-10.44); Estimated GFR 96; Glucose 367 mg/dL (70-105); Hematocrit 32.7 % (36.0-47.0); Hemoglobin 10.7 g/dL (12.0-16.0); Mean Corpuscular HGB CONC 32.7 g/dL (32.0-36.0); Mean Corpuscular Volume 79.4 fL (78.0-98.0); Mean Platelet Volume 12.6 fL (7.4-10.4); Platelet Count 285 10x3/uL (130-400); RBC Distribution Width 12.9 % (11.5-14.5); Red Blood Cell (RBC) Count 4.12 mill/uL (4.20-5.40)
[2023-12-19] MEDS ORDERED: fentaNYL PF 100 MCG/2 ML SYRINGE ONE (07:00)
[2023-12-19] MEDS ORDERED: Midazolam HCl 2 mg/2 ml Vial ONE (07:00)
[2023-12-19] MEDS ORDERED: PROPOFOL 20 ML ONE (07:00)
[2023-12-19] MEDS ORDERED: Lidocaine 1% PF 5 ML VIAL ONE (07:03)
[2023-12-19] MEDS ORDERED: Vancomycin 1 GM/200 ML (FROZEN) BAG ONE (07:24)
[2023-12-19] MEDS ORDERED: Metoclopramide HCl 10 MG (2 mL) VIAL ONE (08:12)
[2023-12-19] MEDS ORDERED: Ondansetron PF 4 MG/2 ML Vial ONE (08:12)
[2023-12-19] MEDS ORDERED: Ketorolac Tromethamine 30 MG (1 mL) VIAL ONE (08:14)
[2023-12-19] MEDS: Vancomycin 1 GM/200 ML (FROZEN) BAG ONE (23:25)
[2023-12-20 06:45] LABS: #Basophils 0.03 10x3/uL (0.0-0.2); %Basophils 0.3 % (0.0-1.0); %Eosinophils 1.9 % (0.0-10.0); %Lymphocytes 21.1 % (21.0-51.0); %Monocytes 8.7 % (0.0-10.0); %Neutrophils 67.8 % (42.0-75.0); Hematocrit 28.8 % (36.0-47.0); Hemoglobin 9.4 g/dL (12.0-16.0); Mean Corpuscular HGB CONC 32.6 g/dL (32.0-36.0); Mean Corpuscular Hemoglobin 26.4 pg (27.0-31.0); Mean Corpuscular Volume 80.9 fL (78.0-98.0); Mean Platelet Volume 12.7 fL (7.4-10.4); Platelet Count 261 10x3/uL (130-400); RBC Distribution Width 13.1 % (11.5-14.5); Red Blood Cell (RBC) Count 3.56 mill/uL (4.20-5.40)
[2023-12-20 07:33] LABS: Vancomycin, Random 25.7 ug/mL (See Comment)
[2023-12-20 07:36] LABS: Anion Gap 13 mmol/L (10-20); BUN (Urea Nitrogen) 11 mg/dL (7.0-18.7); Calc. Creatinine Clearance 118 mL/min (70-130); Calcium 8.4 mg/dL (7.8-10.44); Carbon Dioxide 23 mmol/L (22-29); Chloride 106 mmol/L (98-107); Estimated GFR 83; Glucose 206 mg/dL (70-105); Potassium 3.4 mmol/L (3.5-5.1); Sodium 139 mmol/L (136-145)
[2023-12-20] MEDS: Lidocaine 4% Topical Sol 50 ML BOT TOP SCH (15:22)
[2023-12-20] MEDS: Ferrous Sulfate 325 MG TAB PO SCH (17:24)
[2023-12-20] MEDS: Vancomycin 1 GM in Premix 1 BAG IVPB SCH (20:52)
[2023-12-21 06:24] LABS: #Basophils 0.03 10x3/uL (0.0-0.2); %Basophils 0.4 % (0.0-1.0); %Eosinophils 2.6 % (0.0-10.0); %Lymphocytes 27.5 % (21.0-51.0); %Monocytes 7.6 % (0.0-10.0); %Neutrophils 61.6 % (42.0-75.0); Hematocrit 28.5 % (36.0-47.0); Hemoglobin 9.4 g/dL (12.0-16.0); Mean Corpuscular Hemoglobin 26.8 pg (27.0-31.0); Mean Corpuscular Volume 81.2 fL (78.0-98.0); Mean Platelet Volume 12.4 fL (7.4-10.4); Platelet Count 278 10x3/uL (130-400); RBC Distribution Width 13.1 % (11.5-14.5); Red Blood Cell (RBC) Count 3.51 mill/uL (4.20-5.40)
[2023-12-21 06:37] LABS: Anion Gap 11 mmol/L (10-20); BUN (Urea Nitrogen) 10 mg/dL (7.0-18.7); Calc. Creatinine Clearance 118 mL/min (70-130); Calcium 8.7 mg/dL (7.8-10.44); Carbon Dioxide 23 mmol/L (22-29); Chloride 106 mmol/L (98-107); Estimated GFR 83; Glucose 212 mg/dL (70-105); Potassium 3.3 mmol/L (3.5-5.1); Sodium 137 mmol/L (136-145)
[2023-12-21 06:38] LABS: Vancomycin, Random 23.2 ug/mL (See Comment)
[2023-12-21] MEDS: Lidocaine 4% Topical Sol 50 ML BOT TOP PRN (08:35)
[2023-12-21] MEDS: Multivitamin W/ Minerals 1 TAB PO SCH (08:41)
[2023-12-21] MEDS: Potassium Chloride 20 MEQ TAB PO SCH (08:41)
[2023-12-21] MEDS: Folic Acid 1 MG TAB PO SCH (08:41)
[2023-12-21] MEDS: Ascorbic Acid 500 mg Chewable Tablet PO SCH (08:42)
[2023-12-21] MEDS: Ondansetron PF 4 MG/2 ML Vial IVP PRN (09:58)
[2023-12-21 12:22] VITALS: BMI 30.7
[2023-12-21] MEDS ORDERED: Ibuprofen 600 MG TAB PO PRN (16:57)
[2023-12-21] MEDS: Acetaminophen 500 MG TAB PO SCH (17:55)
[2023-12-21] MEDS: Insulin Glargine 30 UNITS/0.3 ML VIAL SC SCH (18:07)
[2023-12-21] MEDS: Enoxaparin 40 MG (0.4 mL) SYRINGE SC SCH (20:46)
[2023-12-22] MEDS: traMADol HCl 50 MG TAB PO PRN (05:06)
[2023-12-22] MEDS: Morphine 4 MG/ML VIAL ONE (05:28)
[2023-12-22] MEDS: Morphine 4 MG/ML VIAL SLOW IVP PRN (05:28)
[2023-12-22 07:05] LABS: Anion Gap 12 mmol/L (10-20); BUN (Urea Nitrogen) 10 mg/dL (7.0-18.7); Calc. Creatinine Clearance 119 mL/min (70-130); Carbon Dioxide 22 mmol/L (22-29); Chloride 107 mmol/L (98-107); Estimated GFR 84; Glucose 295 mg/dL (70-105); Potassium 4.1 mmol/L (3.5-5.1); Sodium 137 mmol/L (136-145)
[2023-12-22 07:28] LABS: #Basophils Less than 0.03 10x3/uL (0.0-0.2); %Basophils 0.3 % (0.0-1.0); %Lymphocytes 18.7 % (21.0-51.0); %Monocytes 6.5 % (0.0-10.0); %Neutrophils 72.2 % (42.0-75.0); Hematocrit 29.6 % (36.0-47.0); Hemoglobin 9.6 g/dL (12.0-16.0); Mean Corpuscular HGB CONC 32.4 g/dL (32.0-36.0); Mean Corpuscular Hemoglobin 25.9 pg (27.0-31.0); Mean Corpuscular Volume 79.8 fL (78.0-98.0); Mean Platelet Volume 12.7 fL (7.4-10.4); Platelet Count 288 10x3/uL (130-400); RBC Distribution Width 13.2 % (11.5-14.5); Red Blood Cell (RBC) Count 3.71 mill/uL (4.20-5.40)
[2023-12-22 08:07] VITALS: TEMP 97.6
[2023-12-22] MEDS: Polyethylene Glycol 3350 17 GM Packet PO SCH (08:29)
[2023-12-22 16:55] VITALS: BP 160/92
[2023-12-22] MEDS: metroNIDAZOLE 500 MG TAB PO SCH (17:44)
[2023-12-22] MEDS ORDERED: metroNIDAZOLE 500 MG TAB PO SCH (21:00)
== END 2023-12-22 18:37 | disposition left against medical advice (07) | DRG 585 ==
LOC: ERS 10:11 → T4-A 14:32
PROVIDERS: ADMIT Family Medicine; ATTEND Internal Medicine
PROC: 0H9T0ZZ Drainage of Right Breast, Open Approach (ICD-10-PCS; principal; 2023-12-19)
DX: N61.1 Abscess of the breast and nipple (principal); E10.9 Type 1 diabetes mellitus without complications; Z79.4 Long term (current) use of insulin; Z79.899 Other long term (current) drug therapy; G43.909 Migraine, unspecified, not intractable, without status migrainosus; D64.9 Anemia, unspecified; I10 Essential (primary) hypertension
CPT/HCPCS: 36415; 36416; 76999; 80048; 80053; 80202; 81025; 82728; 83540; 83550; 83605; 84703; 85025; 87070; 87076; 87205; 96365; 96375; 97139; C1713; J0692; J1815; J1885; J2250; J2270; J2272; J2405; J2704; J2765; J3370-JW; J3490; J7030; J7050

== ENCOUNTER 2024-01-10 23:00 | Emergency (ER) | payer MEDICAID, OTHER ==
[2024-01-10] MEDS ORDERED: Lorazepam 2 MG/ML VIAL ONE (23:32)
[2024-01-10] MEDS ORDERED: Labetalol HCl 100 MG/20 ML VIAL ONE (23:41)
[2024-01-10] MEDS ORDERED: Magnesium 2 GM/50 ML BAG (IN WATER) ONE (23:41)
[2024-01-11 00:25] LABS: Phosphorus 3.9 mg/dL (2.3-4.7)
[2024-01-11 00:25] LABS: #Basophils 0.05 10x3/uL (0.0-0.2); %Basophils 0.5 % (0.0-1.0); %Eosinophils 2.2 % (0.0-10.0); %Lymphocytes 36.1 % (21.0-51.0); Hematocrit 34.2 % (36.0-47.0); Hemoglobin 11.1 g/dL (12.0-16.0); Mean Corpuscular HGB CONC 32.5 g/dL (32.0-36.0); Mean Corpuscular Hemoglobin 26.5 pg (27.0-31.0); Mean Corpuscular Volume 81.6 fL (78.0-98.0); Mean Platelet Volume 13.9 fL (7.4-10.4); Platelet Count 156 10x3/uL (130-400); RBC Distribution Width 13.5 % (11.5-14.5); Red Blood Cell (RBC) Count 4.19 mill/uL (4.20-5.40)
[2024-01-11 01:01] LABS: ALT (SGPT) 21 U/L (8-55); AST (SGOT) 16 U/L (5-34); Albumin 3.4 g/dL (3.5-5.0); Alkaline Phosphatase 140 U/L (40-110); Anion Gap 22 mmol/L (10-20); BUN (Urea Nitrogen) 20 mg/dL (7.0-18.7); Bilirubin, Total 0.2 mg/dL (0.2-1.2); Calc. Creatinine Clearance 0 mL/min (70-130); Calcium 8.9 mg/dL (7.8-10.44); Carbon Dioxide 15 mmol/L (22-29); Chloride 100 mmol/L (98-107); Estimated GFR 39; Glucose 754 mg/dL (70-105); Magnesium 2.4 mg/dL (1.6-2.6); Potassium 4.9 mmol/L (3.5-5.1); Protein, Total 7.4 g/dL (6.0-8.3); Sodium 132 mmol/L (136-145)
[2024-01-11 02:21] LABS: Actual Bicarbonate (HCO3v) 21.9 mEq/L (22-28); Analyzer IN Cardio ER; Base Excess -4.3 mEq/L (-2.0 to +3.0); Calcium, Ionized (venous) 1.19 mmol/L (1.16-1.32); Chloride (VBG) 98 mmol/L (98-106); Hematocrit-VBG 36 % (36.0-47.0); Hemoglobin (Hb) 12.1 g/dL (11.7-15.5); Sodium 132 mmol/L (133-146); pH (venous) 7.305 (7.32-7.43)
[2024-01-11 02:23] LABS: Potassium (VBG) 6.12 mmol/L (3.70-5.30)
[2024-01-11 02:29] LABS: Bacteria/HPF 1+ HPF (None Seen); Bilirubin Negative (Negative); Blood, Urine Trace (Negative); CAUTI Indications for Culture Dysuria,urgency,freq; Clarity Clear (Clear); Glucose, Urine (Dipstick) Greater than 1000 mg/dL (Negative); Ketone, Urine Negative (Negative); Leukocyte Negative Leu/uL (Negative); Nitrite Negative (Negative); Protein, Urine (Dipstick) 30 mg/dL (Neg-Trace); RBC/HPF 0-3 HPF (0-3); Specific Gravity, Urine 1.022 (1.002-1.036); Squamous Epithelial 0-3 HPF (0-3); Urobilinogen Normal mg/dL (Less than 2); WBC/HPF 0-3 HPF (0-3)
[2024-01-11 02:30] LABS: Urine Culture Reflex No No
[2024-01-11 02:57] LABS: Glucose 810 mg/dL (70-105)
[2024-01-11 04:32] LABS: Anion Gap 16 mmol/L (10-20); BUN (Urea Nitrogen) 25 mg/dL (7.0-18.7); Calc. Creatinine Clearance 0 mL/min (70-130); Calcium 9.2 mg/dL (7.8-10.44); Carbon Dioxide 17 mmol/L (22-29); Chloride 104 mmol/L (98-107); Estimated GFR 46; Potassium 6.1 mmol/L (3.5-5.1); Sodium 131 mmol/L (136-145)
[2024-01-11 04:36] LABS: Lactic Acid 1.3 mmol/L (0.5-2.2)
[2024-01-11] MEDS ORDERED: INSULIN REGULAR IN 0.9 % NACL 100 UNITS/100 ML BAG ONE (04:40)
[2024-01-11 05:18] LABS: Glucose 759 mg/dL (70-105)
== END 2024-01-11 06:51 | disposition left against medical advice (07) ==
LOC: ERS 23:00
DX: E10.10 Type 1 diabetes mellitus with ketoacidosis without coma (principal); R56.9 Unspecified convulsions; I10 Essential (primary) hypertension
CPT/HCPCS: 36415; 70450; 80053; 81001; 82010; 82805; 82947; 83605; 83735; 84100; 84702; 85025; 86900; 86901; 93005; 96365; 96375; 96376; J1815; J2060; J3475

== ENCOUNTER 2024-06-06 18:06 | Emergency (ER) | payer OTHER ==
[2024-06-06 19:28] LABS: Actual Bicarbonate (HCO3v) 23.4 mEq/L (22-28); Analyzer IN Cardio ER; Base Excess -1.4 mEq/L (-2.0 to +3.0); Calcium, Ionized (venous) 1.19 mmol/L (1.16-1.32); Chloride (VBG) 102 mmol/L (98-106); Hematocrit-VBG 42 % (36.0-47.0); Hemoglobin (Hb) 14.3 g/dL (11.7-15.5); Potassium (VBG) 4.71 mmol/L (3.70-5.30); Sodium 139 mmol/L (133-146); pH (venous) 7.387 (7.32-7.43)
[2024-06-06 19:35] LABS: #Basophils 0.05 10x3/uL (0.0-0.2); %Basophils 0.6 % (0.0-1.0); %Lymphocytes 24.3 % (21.0-51.0); %Monocytes 3.7 % (0.0-10.0); %Neutrophils 70.1 % (42.0-75.0); Hematocrit 40.3 % (36.0-47.0); Hemoglobin 13.7 g/dL (12.0-16.0); Mean Corpuscular Hemoglobin 26.8 pg (27.0-31.0); Mean Corpuscular Volume 78.9 fL (78.0-98.0); Mean Platelet Volume 12.7 fL (7.4-10.4); Platelet Count 263 10x3/uL (130-400); RBC Distribution Width 12.7 % (11.5-14.5); Red Blood Cell (RBC) Count 5.11 mill/uL (4.20-5.40)
[2024-06-06 19:52] LABS: ALT (SGPT) 13 U/L (8-55); AST (SGOT) 14 U/L (5-34); Albumin 3.5 g/dL (3.5-5.0); Alkaline Phosphatase 150 U/L (40-110); Anion Gap 15 mmol/L (10-20); BUN (Urea Nitrogen) 20 mg/dL (7.0-18.7); Bilirubin, Total 0.3 mg/dL (0.2-1.2); Calc. Creatinine Clearance 0 mL/min (70-130); Calcium 9.3 mg/dL (7.8-10.44); Carbon Dioxide 22 mmol/L (22-29); Chloride 104 mmol/L (98-107); Estimated GFR 77; Globulin 4.2 g/dL (2.4-3.5); Glucose 340 mg/dL (70-105); Potassium 4.7 mmol/L (3.5-5.1); Protein, Total 7.7 g/dL (6.0-8.3); Sodium 136 mmol/L (136-145)
[2024-06-06 19:56] LABS: Troponin I Less than 0.010 ng/mL (< 0.028)
[2024-06-06] MEDS ORDERED: Ondansetron ODT 4 MG TAB ONE (20:17)
[2024-06-06] MEDS ORDERED: hydrOXYzine 25 MG TAB ONE (21:21)
== END 2024-06-06 22:01 | disposition home or self-care (01) ==
LOC: ERS 18:06
DX: R11.2 Nausea with vomiting, unspecified (principal); R19.7 Diarrhea, unspecified; I10 Essential (primary) hypertension; E10.9 Type 1 diabetes mellitus without complications; Z55.0 Illiteracy and low-level literacy
CPT/HCPCS: 36415; 36416; 71045; 80053; 82010; 82805; 84484; 85025; 93005; Q0162

== ENCOUNTER 2024-08-08 01:34 | Emergency (ER) | payer OTHER ==
[2024-08-08] MEDS ORDERED: Ketorolac Tromethamine 30 MG (1 mL) VIAL ONE (01:46)
[2024-08-08] MEDS ORDERED: Ondansetron PF 4 MG/2 ML Vial ONE (01:46)
[2024-08-08] MEDS ORDERED: hydrALAZINE 20 MG/ML VIAL ONE ×2 (02:02→03:48)
[2024-08-08] MEDS ORDERED: Morphine 4 MG/ML VIAL ONE (02:58)
[2024-08-08 03:25] LABS: ALT (SGPT) 27 U/L (Less than 34); AST (SGOT) 27 U/L (11-34); Acetaminophen Less than 10 mcg/mL (Less than 10); Albumin 3.4 g/dL (3.1-4.5); Alcohol Less than 10.0 mg/dL (Less than 10); Alkaline Phosphatase 180 U/L (40-110); Anion Gap 15 mmol/L (10-20); BUN (Urea Nitrogen) 13 mg/dL (7.0-18.7); Bilirubin, Total 0.3 mg/dL (0.3-1.2); Calc. Creatinine Clearance 0 mL/min (70-130); Calcium 8.9 mg/dL (7.8-10.44); Carbon Dioxide 21 mmol/L (22-29); Chloride 108 mmol/L (98-107); Estimated GFR 83; Globulin 3.6 g/dL (2.4-3.5); Glucose 223 mg/dL (70-105); Lipase 13 U/L (8-78); Magnesium 1.8 mg/dL (1.6-2.6); Potassium 4.1 mmol/L (3.5-5.1); Salicylate Less than 8.0 mg/dL (Less than 8.0); Sodium 140 mmol/L (136-145)
[2024-08-08 03:30] LABS: Troponin I Less than 0.010 ng/mL (< 0.028)
[2024-08-08 03:47] LABS: #Basophils 0.06 10x3/uL (0.0-0.2); %Basophils 0.4 % (0.0-1.0); %Eosinophils 0.6 % (0.0-10.0); %Lymphocytes 14.2 % (21.0-51.0); %Monocytes 4.4 % (0.0-10.0); %Neutrophils 79.9 % (42.0-75.0); Hematocrit 35.8 % (36.0-47.0); Hemoglobin 12.1 g/dL (12.0-16.0); Mean Corpuscular HGB CONC 33.8 g/dL (32.0-36.0); Mean Corpuscular Hemoglobin 26.5 pg (27.0-31.0); Mean Corpuscular Volume 78.5 fL (78.0-98.0); Mean Platelet Volume 13.2 fL (7.4-10.4); Platelet Count 195 10x3/uL (130-400); RBC Distribution Width 12.4 % (11.5-14.5); Red Blood Cell (RBC) Count 4.56 mill/uL (4.20-5.40)
[2024-08-08] MEDS ORDERED: Haloperidol Lactate 5 MG/ML VIAL ONE (04:24)
[2024-08-08 05:57] LABS: Amphetamine Not Detected (NotDetected); Barbiturates Screen Not Detected (NotDetected); Benzodiazepine Screen Not Detected (NotDetected); Cocaine Metabolite Screen Not Detected (NotDetected); Methadone Not Detected (NotDetected); Methamphetamine Not Detected (NotDetected); Opiate Screen Detected (NotDetected); Oxycodone Screen Not Detected (NotDetected); Phencyclidine (PCP) Not Detected (NotDetected); THC/Cannabinoid Screen Not Detected (NotDetected); Tricyclic Screen Not Detected (NotDetected)
[2024-08-08 06:01] LABS: Bacteria/HPF None Seen HPF (None Seen); Bilirubin Negative (Negative); Blood, Urine 1+ (Negative); CAUTI Indications for Culture Alt mental st,lethar; Clarity Clear (Clear); Glucose, Urine (Dipstick) Greater than 1000 mg/dL (Negative); Ketone, Urine 40 mg/dL (Negative); Leukocyte Negative Leu/uL (Negative); Nitrite Negative (Negative); Protein, Urine (Dipstick) 200 mg/dL (Neg-Trace); Specific Gravity, Urine 1.013 (1.002-1.036); Squamous Epithelial 0-3 HPF (0-3); Urobilinogen Normal mg/dL (Less than 2); WBC/HPF 0-3 HPF (0-3)
[2024-08-08 06:03] LABS: Pregnancy Test - Urine (BHCG) Negative (Negative); Pregu Control Background? CLEAR/WHITE (CLR/WHITE); Pregu Control Bar Appear? YES (CONTROL BAR); Specific Gravity 1.013 (1.002-1.036); Urine Culture Reflex No No
== END 2024-08-08 06:30 | disposition home or self-care (01) ==
LOC: ERS 01:34
DX: A05.9 Bacterial foodborne intoxication, unspecified (principal); I10 Essential (primary) hypertension; E10.9 Type 1 diabetes mellitus without complications; Z79.4 Long term (current) use of insulin
CPT/HCPCS: 36415; 36416; 51701; 71045; 80053; 80306; 80307; 81001; 81025; 83605; 83690; 83735; 83880; 84484; 85025; 93005; 96361; 96372; 96374; 96375; 96376; J0360; J1630; J1885; J2270; J2405